=== PATIENT | female | born 1995 | race Caucasian/White ===

== ENCOUNTER → 2019-11-29 15:27 | Outpatient (BNVA) | payer OTHER, SELFPAY | PROVIDERS: Visit Provider Nurse Practitioner Women's Health | DX: Z30.430 Encounter for insertion of intrauterine contraceptive device (principal); R10.2 Pelvic and perineal pain; N83.202 Unspecified ovarian cyst, left side | CPT/HCPCS: 81025 ==

== ENCOUNTER → 2021-07-25 14:50 | Outpatient (BNVA) | payer OTHER, SELFPAY | PROVIDERS: Visit Provider Nurse Practitioner Family | DX: Z20.822 Contact with and (suspected) exposure to COVID-19 (principal) | CPT/HCPCS: 87426 ==

== ENCOUNTER 2022-01-16 20:30 | Emergency (ER) | payer MEDICAID, SELFPAY ==
[2022-01-16 20:41] VITALS: BP 132/83; PULSE 110; RESP 18; TEMP 36.4; O2SAT 99; BMI 25.7
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
== END 2022-01-16 23:10 | disposition home or self-care (01) ==
PROVIDERS: Emergency Provider Physician Assistant
DX: S60.221A Contusion of right hand, initial encounter (principal); T22.012A Burn of unspecified degree of left forearm, initial encounter; W22.11XA Striking against or struck by driver side automobile airbag, initial encounter; V40.5XXA Car driver injured in collision with pedestrian or animal in traffic accident, initial encounter
CPT/HCPCS: 73130; 99282

== ENCOUNTER → 2022-08-18 13:05 | Outpatient (BNVA) | payer BC, SELFPAY | PROVIDERS: PCP Family Medicine; Visit Provider Family Medicine | DX: G57.02 Lesion of sciatic nerve, left lower limb (principal); J02.9 Acute pharyngitis, unspecified | CPT/HCPCS: 87071; 87880 ==

== ENCOUNTER → 2024-07-27 14:39 | Outpatient (BNVA) | payer BC, MEDICAID, SELFPAY | PROVIDERS: PCP Family Medicine; Visit Provider Nurse Practitioner Women's Health | DX: Z12.4 Encounter for screening for malignant neoplasm of cervix (principal); Z11.3 Encounter for screening for infections with a predominantly sexual mode of transmission | CPT/HCPCS: 86592; 86803; 87340; 87491; 87591; 87624; 87806 ==